=== PATIENT | male | born 1980 | race Asian ===

== ENCOUNTER 2018-11-15 18:58 | Emergency (ER) | payer MEDICARE ==
[~2018-11-15] VITALS: Ht 172.7 cm; Wt 150.0 kg
[2018-11-15 23:30] VITALS: BP 171/77
== END 2018-11-15 23:33 | disposition home or self-care (01) ==
LOC: ED 21:33
DX: R07.89 Other chest pain (principal); I11.0 Hypertensive heart disease with heart failure; I50.9 Heart failure, unspecified
CPT/HCPCS: 36415; 71045; 80048; 82040; 84484; 85025; 93005; 99284

== ENCOUNTER 2019-05-03 12:07 | Emergency (ER) | payer MEDICARE, OTHER ==
[~2019-05-03] VITALS: Ht 175.3 cm; Wt 137.0 kg
[~2019-05-03 12:07] MED LIST: AMIO100T4 PO; ASPI-496 PO; CARV25TA12 PO; FEBU80TA2 PO; FURO40TA6 PO; LIDO700A20 TD; LISI-170 PO; POTA20TA14 PO; POTA20TA6 PO; SIMV40TA PO; SPIR25TA PO
[2019-05-03] MEDS ORDERED: MORPHINE SULFATE 4 MG/ML, 1ML ONE ×3 (12:41→15:47)
[2019-05-03] MEDS ORDERED: ONDANSETRON 2MG/ML, 2ML ONE (12:41)
[2019-05-03] MEDS: MORPHINE SULFATE 4 MG/ML, 1ML IVPush PRN ×2 (12:54→14:12)
[2019-05-03] MEDS ORDERED: ONDANSETRON 2MG/ML, 2ML IVPush ONE (13:00)
[2019-05-03] MEDS ORDERED: SODIUM CHLORIDE FLUSH 10ML SYR IVF ONE (13:00)
--- NOTE | 2019-05-03 13:01 | NUR ---
BIBA FROM HOME. L KNEE SWELLING, PAIN. UNABLE TO AMBULATE. SWELLING NO REDNESS NOTED. 01/19 PAIN. HX EFFUSION W/ DRAINAGE, GOUT. DENIES FEVERS. DENIES DRINKING. HX CHF, BILAT SWOLLEN EXTREMITIES, SKIN THICK/HARDENED/DISCOLORATION. ST ON MONITOR 120-130. EKG TO TE BACH. HYPERTENSIVE. DID NOT TAKE ANY OF HIS MEDS YESTERDAY "I DON'T WANT TO GET UP TO PEE". DENIES CP/SOB. SKIN WARM AND DRY. A&OX4 GCS 15. PIV EST, LABS SENT, MEDS PER JUN, US AT BEDSIDE. CALL [facility] IN REACH. CTM.
[2019-05-03 13:24] LABS: ALBUMIN 3.2 g/dL (3.4-5.0); ANION GAP 7 mmol/L (5-15); CALCIUM 8.6 mg/dL (8.5-10.1); CHLORIDE 105 mmol/L (98-107)
--- NOTE | 2019-05-03 14:16 | NUR ---
XR SHOWS LG JOINT EFFUSION. CBC HEMOLYZED: REDRAW.
--- NOTE | 2019-05-03 14:17 | NUR ---
2ND DOSE MORPHINE PER JUN FOR 7/10 L KNEE PAIN. PT PLACED ON 2LNC DESAT TO 84%. REMAINS HYPERTENSIVE/TACHYCARDIC. LAB NOTIFIED OF REDRAW. CALL BEL IN REACH.
[2019-05-03 14:31] LABS: HCT (SEDRATE) 41.2 % (39.2-51.8)
[2019-05-03 14:42] LABS: BASOPHILS # (AUTO) 0.04 x10^3/uL (0-0.1); BASOPHILS % (AUTO) 0 % (0-1); EOSINOPHILS # (AUTO) 0.05 x10^3/uL (0-0.4); EOSINOPHILS % (AUTO) 1 % (1-7); LYMPHOCYTES # (AUTO) 1.29 x10^3/uL (1-3.4); LYMPHOCYTES % (AUTO) 14 % (22-44); MD NO; MEAN CORPUSCULAR HGB CONC 33.4 g/dL (33.2-36.2); MEAN CORPUSCULAR VOLUME 92.9 fL (81-97); MEAN PLATELET VOLUME 8.8 fL (7.4-10.4); MONOCYTES # (AUTO) 0.62 x10^3/uL (0.2-0.8); MONOCYTES % (AUTO) 7 % (2-9); NEUTROPHILS % (AUTO) 78 % (42-75); PLATELET COUNT 231 x10^3/uL (130-400); RED BLOOD COUNT 4.26 x10^6/uL (4.38-5.82)
[2019-05-03] MEDS ORDERED: KETOROLAC 30 MG/1 ML ONE (14:42)
--- NOTE | 2019-05-03 14:49 | NUR ---
MEDS PER MAR. PLAN TO AMBULATE. PT VERBALIZES THAT HE IS SCARED TO GO HOME BC HE DOES NOT WANT TO HURT HIMSELF.
[2019-05-03] MEDS ORDERED: KETOROLAC 30 MG/1 ML IVPush ONE (15:00)
--- NOTE | 2019-05-03 15:54 | NUR ---
ATTEMPT TO WALK W WALKER. PT STS "I FEEL UNSTABLE" ASKED FOR MORE MORPHINE. ROSA BAEZ NOTIFIED. MORPHINE GIVEN IV. WILL WAIT 5 MIN THEN TRY AGAIN.
[2019-05-03 16:00] VITALS: BP 147/101
[2019-05-03] MEDS ORDERED: MORPHINE SULFATE 4 MG/ML, 1ML IVPush PRN (16:00)
== END 2019-05-03 16:56 | disposition home or self-care (01) ==
LOC: ED 14:17
DX: M71.22 Synovial cyst of popliteal space [Baker], left knee (principal); I11.0 Hypertensive heart disease with heart failure; I50.9 Heart failure, unspecified; X50.0XXA Overexertion from strenuous movement or load, initial encounter; Y93.89 Activity, other specified; Y92.009 Unspecified place in unspecified non-institutional (private) residence as the place of occurrence of the external cause; Y99.8 Other external cause status
CPT/HCPCS: 36415; 73564; 80048; 82040; 83880; 84550; 85025; 85651; 93005; 93971; 96374; 96375; 96376; 99284; J1885; J2270; J2405

== ENCOUNTER 2019-05-07 17:07 | Emergency (ER) | payer OTHER ==
[~2019-05-07] VITALS: Ht 175.3 cm; Wt 134.8 kg
[2019-05-07] MEDS ORDERED: HYDROcodone/APAP 10/325 MG TABLET PO STA (18:09)
[2019-05-07] MEDS ORDERED: HYDROcodone/APAP 10/325 MG TABLET ONE (18:25)
[2019-05-07] MEDS ORDERED: KETOROLAC 60 MG/2 ML ONE (18:25)
[2019-05-07] MEDS ORDERED: KETOROLAC 30 MG/1 ML IM ONE (18:30)
[2019-05-07 20:18] VITALS: BP 145/90
== END 2019-05-07 20:22 | disposition home or self-care (01) ==
LOC: ED 19:52
DX: M19.041 Primary osteoarthritis, right hand (principal); M10.9 Gout, unspecified; I11.0 Hypertensive heart disease with heart failure; I50.9 Heart failure, unspecified
CPT/HCPCS: 73130; 96372; 99283; J1885

== ENCOUNTER 2019-05-18 03:13 | Emergency (ER) | payer SELFPAY ==
[~2019-05-18] VITALS: Ht 175.3 cm; Wt 131.6 kg
[2019-05-18 03:15] VITALS: BP 199/83
[2019-05-18] MEDS ORDERED: HYDROmorphone 1 MG/ML, 1ML INJ IM ONE (04:00)
[2019-05-18] MEDS ORDERED: HYDROmorphone 1 MG/ML, 1ML INJ ONE (04:03)
[2019-05-18] MEDS ORDERED: KETOROLAC 60 MG/2 ML IM ONE (05:00)
[2019-05-18] MEDS ORDERED: KETOROLAC 60 MG/2 ML ONE (05:06)
--- NOTE | 2019-05-18 05:28 | NUR ---
Sling applied to patients right arm. Pt verbalized discharge instuctions and prescription education
== END 2019-05-18 05:32 | disposition home or self-care (01) ==
LOC: ED 05:17
DX: M10.031 Idiopathic gout, right wrist (principal); I11.0 Hypertensive heart disease with heart failure; I50.9 Heart failure, unspecified; M10.9 Gout, unspecified; F17.200 Nicotine dependence, unspecified, uncomplicated
CPT/HCPCS: 96372; 99283; J1170; J1885; J7512

== ENCOUNTER 2019-06-09 07:09 | Emergency (ER) | payer SELFPAY ==
[~2019-06-09] VITALS: Ht 175.3 cm; Wt 139.6 kg
[2019-06-09] MEDS ORDERED: HYDROmorphone 1 MG/ML, 1ML INJ ONE ×2 (07:52→09:36)
--- NOTE | 2019-06-09 07:57 | NUR ---
TASK RN: PT SITTING UP ON GURNEY. PT MEDICATED FOR 10/10 PAIN ORDERED. PT WITH PULSE OX AND AUTO BP CUFF IN PLACE. NO OTHER NEEDS EXPRESSED AT THIS TIME.
[2019-06-09] MEDS ORDERED: HYDROmorphone 1 MG/ML, 1ML INJ IM ONE ×2 (08:00→09:30)
--- NOTE | 2019-06-09 08:48 | NUR ---
PT. REPORTS PAIN DOWN FROM 10/10 TO 6/10 AFTER PAIN MEDS. AWAITING PROVIDER RECHECK.
--- NOTE | 2019-06-09 08:53 | NUR ---
REPORT FROM SELIN STEARNS.
--- NOTE | 2019-06-09 08:53 | NUR ---
STUDENT AT FOR RECHECK AT THIS TIME. REPORT TO SELIN PETERSEN TO ASSUME CARE.
--- NOTE | 2019-06-09 09:42 | NUR ---
TASK RN: PT REMEDICATED FOR 6-7/10 LEFT WRIST PAIN.
[2019-06-09 11:52] VITALS: BP 162/82
== END 2019-06-09 11:54 | disposition home or self-care (01) ==
LOC: ED 07:40
DX: M17.11 Unilateral primary osteoarthritis, right knee (principal)
CPT/HCPCS: 96372; 99285; J1170